=== PATIENT | female | born 1970 | race Caucasian/White ===

== ENCOUNTER 2019-10-03 22:29 | Emergency (ER) | payer OTHER ==
[~2019-10-03] VITALS: Ht 180.3 cm; Wt 147.4 kg
[2019-10-03 22:32] VITALS: BP 90/51
[2019-10-03] MEDS ORDERED: MORPHINE SULFATE 2 MG/ML SYR IVP ONE (22:55)
[2019-10-03] MEDS ORDERED: MORPHINE SULFATE 2 MG/ML SYR IM ONE (23:20)
[2019-10-04 00:12] LABS: APPEARANCE,URINE CLEAR (CLEAR); BILIRUBIN,URINE NEGATIVE (NEGATIVE); BLOOD, URINE TRACE-I (NEGATIVE); COLOR,URINE YELLOW (YELLOW); LEUKOCYTE ESTERASE ,URINE NEGATIVE (NEGATIVE); NITRITE, URINE NEGATIVE (NEGATIVE); UGLUCOSE NEGATIVE (NEGATIVE)
[2019-10-04 00:23] LABS: WBC,URINE 0-5 /HPF (0-5)
[2019-10-04 00:56] VITALS: BP 121/52
== END 2019-10-04 00:57 ==
LOC: MED 22:29
DX: R60.9 Edema, unspecified (principal); R06.02 Shortness of breath; I11.0 Hypertensive heart disease with heart failure; I50.9 Heart failure, unspecified; Z95.0 Presence of cardiac pacemaker; Z98.890 Other specified postprocedural states; Z88.0 Allergy status to penicillin
CPT/HCPCS: 36415; 71045; 81001; 83880; 93005; 96372; 99283; J2270; Q0092

== ENCOUNTER 2019-10-15 05:37 | Emergency (ER) | payer OTHER ==
[~2019-10-15] VITALS: Ht 180.3 cm; Wt 147.4 kg
[2019-10-15 05:38] VITALS: BP 125/99
--- NOTE | 2019-10-15 05:41 | NUR ---
Pt BIBA for generalized body ache x 1 week. Pt arrived to ED. Pt asked [facility] crew where her wheel chair is. [facility] crew explained they had to leave wheelchair on scene. Unable to fit wheelchair in ambulance. Pt states "take me back to get my wheelchair." [facility] crew tried to explain they are unable to take her back due to EMTALA violation. Pt starting to screaming "take me fucking back to get my fucking wheel, i need my fucking wheelchair." Pt told to stop yelling in ED and we would call [employer] to grab wheelchair. Pt states, "No, you call them now and get my fucking wheelchair." Pt continues to yell at ED staff and Paramedics. Pt refusing to leave EMS gurney until she recieves her wheelchair. Pt asked to move to hospital [facility] to be evaulated by ED doctor. Pt states "I dont want to be seen by no fucking doctor, I want my wheelchair." Pt told if she would not like to be seen by doctor then she needs to transfer into ED wheelchair to be escorted out of ED. Pt eventually states "ill move over to the bed." Pt then removed EMS gurney seatbelts and threw them off her towards medical staff. Pt continues to harass and insult medical staff. Pt told to stop and verbal assult will not be tolerated in ED. Pt then states "call the fucking shrimping boat captain and get my wheelchair." Unable to assess patients vitals or complete assessment due to paitents violent behavior. Pt appears to be stable, appears to be in no distress. ROYA jimenez calling [employer] to see if PD has pt wheelchair.
--- NOTE | 2019-10-15 05:43 | NUR ---
0530 PT BIBA BLS TO ER BED 6
--- NOTE | 2019-10-15 05:44 | NUR ---
CALL TO [facility] REGARDING PATIENT STATUS -- STAFF AT [facility] STATE THAT SHE IS NO LONGER A PATIENT AT THEIR FACILITY.
--- NOTE | 2019-10-15 05:45 | NUR ---
DR. HOUSER BEDSIDE EVALUATING PT
--- NOTE | 2019-10-15 06:03 | NUR ---
Vitals obtained from [facility] crew for triage note
--- NOTE | 2019-10-15 06:21 | NUR ---
Patient discharged with v/s stable. Written and verbal after care instructions given and explained. Patient verbalized understanding. Wheel Chair Assisted with to car. All questions addressed prior to discharge. Advised to follow up with PMD. Pt was given a voucher for a taxi ride to [email or web address] where [facility] left her wheelchair.
== END 2019-10-15 06:21 | disposition home or self-care (01) ==
LOC: MED 05:37
DX: R60.0 Localized edema (principal); M25.562 Pain in left knee; M25.532 Pain in left wrist; I11.0 Hypertensive heart disease with heart failure; I50.9 Heart failure, unspecified; Z95.0 Presence of cardiac pacemaker; Z88.0 Allergy status to penicillin
CPT/HCPCS: 99283

== ENCOUNTER 2019-11-06 23:55 | Inpatient (IN) | payer SELFPAY ==
[~2019-11-06] VITALS: Ht 170.2 cm; Wt 142.4 kg
[2019-11-07] MEDS ORDERED: NACL 0.9% 1,000 ML IV ONE (00:15)
[2019-11-07 00:20] VITALS: BP 67/17
[2019-11-07 00:55] LABS: BASOPHILS # (AUTO) 0.1 K/uL (0.00-0.22); BASOPHILS % (AUTO) 0.5 % (0.0-2.0); EOSINOPHILS % (AUTO) 0.1 % (0.0-4.0); HEMATOCRIT 42.5 % (36-48); LYMPHOCYTES # (AUTO) 1.5 K/uL (2.5-16.5); LYMPHOCYTES % (AUTO) 13.2 % (20.5-51.1); MEAN CORPUSCULAR HEMOGLOBIN 29 pg (27-31); MEAN CORPUSCULAR HGB CONC 33 g/dL (33-37); MEAN CORPUSCULAR VOLUME 87.8 fL (80-94); MONOCYTES # (AUTO) 1.1 K/uL (0.8-1.0); NEUTROPHILS # (AUTO) 8.4 K/uL (1.8-7.7); NEUTROPHILS % (AUTO) 76.2 % (42.2-75.2); PLATELET COUNT (AUTO) 448 K/uL (140-450); RED BLOOD CELL COUNT(AUTO) 4.85 MIL/uL (4.20-5.40); RED CELL DISTRIBUTION WIDTH 19.1 % (11.6-13.7)
[2019-11-07 01:13] LABS: ALBUMIN 4.3 g/dL (3.4-5.0); CARBON DIOXIDE 28.6 mmol/L (21-32); CREATININE 3.3 mg/dL (0.6-1.3); TOTAL BILIRUBIN 0.3 mg/dL (0.0-1.0)
[2019-11-07 01:21] LABS: POTASSIUM 2.6 mmol/L (3.5-5.1)
[2019-11-07] MEDS ORDERED: POTASSIUM CHLORIDE 20% 40 MEQ/15 ML UDC PO ONE (01:25)
[2019-11-07] MEDS ORDERED: POTASSIUM CHLORIDE 10 MEQ TABER PO ONE (01:45)
[2019-11-07 02:06] LABS: APPEARANCE,URINE CLEAR (CLEAR); BILIRUBIN,URINE NEGATIVE (NEGATIVE); BLOOD, URINE NEGATIVE (NEGATIVE); COLOR,URINE YELLOW (YELLOW); LEUKOCYTE ESTERASE ,URINE NEGATIVE (NEGATIVE); NITRITE, URINE NEGATIVE (NEGATIVE); UGLUCOSE NEGATIVE (NEGATIVE)
[2019-11-07] MEDS ORDERED: MORPHINE SULFATE 4 MG/ML SYR IVP ONE (05:35)
[2019-11-07] MEDS ORDERED: ALUMINUM HYD/MAG/SIMETHICONE 30 ML UDC PO ONE (05:50)
[2019-11-07] MEDS ORDERED: ONDANSETRON 4 MG/2 ML VIAL IVP ONE (06:05)
[2019-11-07] MEDS: NACL 0.9% 1,000 ML IV SCH (06:32)
[2019-11-07] MEDS ORDERED: ONDANSETRON 4 MG/2 ML VIAL IM/IVP PRN (06:35)
[2019-11-07] MEDS ORDERED: POTASSIUM CHL 10 MEQ/D5-1/2NS 1,000 ML IV ONE (06:35)
[2019-11-07 07:42] LABS: BARBITURATE, URINE NEGATIVE ng/ml (NEG <=200)
[2019-11-07 07:43] LABS: BENZODIAZEPINE, URINE POSITIVE ng/mL (NEG <=200); CANNABINOID, URINE NEGATIVE ng/mL (NEG <=50); COCAINE, URINE NEGATIVE ng/mL (NEG <=300); OPIATE, URINE POSITIVE ng/mL (NEG <=2000); PHENCYCLIDINE SCREEN,URINE NEGATIVE ng/mL (NEG <=25)
[2019-11-07 07:45] LABS: MAGNESIUM 2.2 mg/dL (1.8-2.4); PHOSPHORUS 5.6 mg/dL (2.5-4.9); THYROID STIMULATING HORMONE 3.71 uIU/mL (0.34-3.74)
[2019-11-07] MEDS ORDERED: DILT180C80 PO (08:31)
[2019-11-07] MEDS ORDERED: BENA20TA11 PO (08:31)
[2019-11-07] MEDS ORDERED: FURO-570 PO (08:31)
[2019-11-07] MEDS ORDERED: APIX5TAB PO (08:31)
[2019-11-07] MEDS ORDERED: POTA10TE30 PO (08:31)
[2019-11-07] MEDS: PANTOPRAZOLE 40 MG INJ VIAL IVP SCH (09:00)
[2019-11-07] MEDS: APIXABAN 2.5 MG TAB PO SCH ×2 (09:00→20:20)
[2019-11-07] MEDS ORDERED: BENAZEPRIL 5 MG TAB PO SCH (09:00)
[2019-11-07] MEDS ORDERED: MULTIVITAMIN-12 10 ML, THIAMINE 100 MG, FOLIC ACID 1 MG, MAGNESIUM SULFATE 50% 2,000 MG... IV SCH ×5 (09:00)
[2019-11-07] MEDS ORDERED: FUROSEMIDE 40 MG TAB PO SCH (09:00)
[2019-11-07] MEDS ORDERED: LORazepam 0.5 MG TAB PO PRN (09:05)
[2019-11-07] MEDS: MORPHINE SULFATE 2 MG/ML SYR IVP PRN ×3 (09:10→15:15)
[2019-11-07] MEDS ORDERED: ALUMINUM HYD/MAG/SIMETHICONE 30 ML UDC PO PRN (09:30)
[2019-11-07 09:54] VITALS: BP 103/51
[2019-11-07 12:00] VITALS: BP 111/54
[2019-11-07] MEDS: DILTIAZEM 60 MG TAB PO SCH ×2 (13:00→20:18)
[2019-11-07 14:11] LABS: CARBON DIOXIDE 30.7 mmol/L (21-32); CREATININE 3.2 mg/dL (0.6-1.3); POTASSIUM 3.7 mmol/L (3.5-5.1)
[2019-11-07 16:00] VITALS: BP 88/56
[2019-11-07] MEDS: LORazepam 2 MG/ML VIAL IVP PRN (17:30)
[2019-11-07 20:00] VITALS: BP 104/49
[2019-11-08] VITALS: BP 142/73
[2019-11-08] MEDS: MORPHINE SULFATE 2 MG/ML SYR IVP PRN ×2 (01:39→06:00)
[2019-11-08] MEDS: DOCUSATE SODIUM 100 MG GELCAP PO PRN ×2 (01:56→10:42)
[2019-11-08] MEDS: LORazepam 2 MG/ML VIAL IVP PRN ×2 (02:35→08:46)
[2019-11-08 04:00] VITALS: BP 112/65
[2019-11-08] MEDS: DILTIAZEM 60 MG TAB PO SCH ×2 (04:24→12:50)
[2019-11-08] MEDS: NACL 0.9% 1,000 ML IV SCH (06:32)
[2019-11-08 07:13] LABS: BASOPHILS # (AUTO) 0.1 K/uL (0.00-0.22); BASOPHILS % (AUTO) 1.7 % (0.0-2.0); EOSINOPHILS # (AUTO) 0.1 K/uL (0-0.4); EOSINOPHILS % (AUTO) 1.3 % (0.0-4.0); HEMATOCRIT 37.7 % (36-48); HEMOGLOBIN 12.3 g/dL (12.0-16.0); LYMPHOCYTES # (AUTO) 1.3 K/uL (2.5-16.5); LYMPHOCYTES % (AUTO) 16.4 % (20.5-51.1); MEAN CORPUSCULAR HEMOGLOBIN 29 pg (27-31); MEAN CORPUSCULAR HGB CONC 33 g/dL (33-37); MEAN CORPUSCULAR VOLUME 88.8 fL (80-94); MONOCYTES # (AUTO) 1.1 K/uL (0.8-1.0); MONOCYTES % (AUTO) 13.4 % (1.7-9.3); NEUTROPHILS # (AUTO) 5.4 K/uL (1.8-7.7); NEUTROPHILS % (AUTO) 67.2 % (42.2-75.2); PLATELET COUNT (AUTO) 361 K/uL (140-450); RED BLOOD CELL COUNT(AUTO) 4.24 MIL/uL (4.20-5.40); RED CELL DISTRIBUTION WIDTH 18.7 % (11.6-13.7); WHITE BLOOD COUNT (AUTO) 8.1 K/uL (4.8-10.8)
[2019-11-08 07:58] LABS: MAGNESIUM 2.6 mg/dL (1.8-2.4); PHOSPHORUS 3.5 mg/dL (2.5-4.9)
[2019-11-08 08:00] VITALS: BP 126/68
[2019-11-08 08:34] LABS: ANION GAP 11.1 (8-16); CARBON DIOXIDE 30.9 mmol/L (21-32); CREATININE 1.9 mg/dL (0.6-1.3)
[2019-11-08] MEDS: PANTOPRAZOLE 40 MG INJ VIAL IVP SCH (08:46)
[2019-11-08] MEDS: APIXABAN 2.5 MG TAB PO SCH (08:57)
[2019-11-08] MEDS ORDERED: FUROSEMIDE 40 MG/4 ML VIAL IVP SCH (09:00)
[2019-11-08] MEDS ORDERED: POTASSIUM CHLORIDE 10 MEQ TABER PO SCH (10:00)
[2019-11-08 10:01] LABS: CHOL/HDL RATIO 4.7 (1-4.5)
[2019-11-08] MEDS ORDERED: MORPHINE SULFATE 2 MG/ML SYR IVP SCH (10:30)
[2019-11-08 12:00] VITALS: BP 115/77
[2019-11-08] MEDS ORDERED: POTA10TE30 PO (13:37)
[2019-11-08] MEDS ORDERED: APIX5TAB PO ×2 (13:37→15:43)
[2019-11-08] MEDS ORDERED: DILT180C80 PO (13:37)
[2019-11-08] MEDS ORDERED: FURO-570 PO ×2 (13:37→15:48)
[2019-11-08] MEDS ORDERED: BENA20TA11 PO (13:37)
[2019-11-08 13:43] VITALS: BP 115/77
[2019-11-08] MEDS ORDERED: POTA20PA PO (15:48)
[2019-11-08] MEDS ORDERED: DILT60TA94 PO (15:48)
[2019-11-08] MEDS ORDERED: DOCU-299 PO (15:48)
== END 2019-11-08 18:00 | disposition home or self-care (01) | DRG 682 ==
LOC: MED 23:55 → MTU 11-07 06:34
PROVIDERS: ADMIT General Practice; ATTEND General Practice
DX: N17.0 Acute kidney failure with tubular necrosis (principal); I50.43 Acute on chronic combined systolic (congestive) and diastolic (congestive) heart failure; Z68.42 Body mass index [BMI] 45.0-49.9, adult; E87.6 Hypokalemia; Z88.8 Allergy status to other drugs, medicaments and biological substances; Z88.0 Allergy status to penicillin; I11.0 Hypertensive heart disease with heart failure; Z95.0 Presence of cardiac pacemaker; G89.29 Other chronic pain; Z82.49 Family history of ischemic heart disease and other diseases of the circulatory system; F10.129 Alcohol abuse with intoxication, unspecified; Y90.9 Presence of alcohol in blood, level not specified; I48.91 Unspecified atrial fibrillation; R74.0 Nonspecific elevation of levels of transaminase and lactic acid dehydrogenase [LDH]; K21.9 Gastro-esophageal reflux disease without esophagitis; E66.01 Morbid (severe) obesity due to excess calories; Z71.3 Dietary counseling and surveillance
CPT/HCPCS: 36415; 71045; 80048; 80053; 80305; 81003; 81025; 83036; 83690; 83735; 83880; 84100; 84443; 84484; 85025; 85610; 85730; 87081; 93005; 96361; 96374; 96375; 97110; 97112; 97116; 97161-GP; 97530; 99285; A9153; C9113; G0482; J1940; J2060; J2270; J2405; J3411; J3475; J3490; J7030; Q0092

== ENCOUNTER 2019-11-24 05:31 | Emergency (ER) | payer OTHER ==
[~2019-11-24] VITALS: Ht 177.8 cm; Wt 153.3 kg
[~2019-11-24 05:31] MED LIST: APIX5TAB PO; DILT60TA94 PO; DOCU-299 PO; FURO-570 PO; POTA20PA PO
--- NOTE | 2019-11-24 05:31 | NUR ---
PT BIBA BLS TO ER BED 04
[2019-11-24 05:43] VITALS: BP 158/81
[2019-11-24] MEDS ORDERED: ONDANSETRON 4 MG ODT PO ONE (05:50)
--- NOTE | 2019-11-24 05:57 | NUR ---
49 Y/O FEMALE BIBA C/O GENERALIZED ABD PAIN. RATES PAIN 10/10 AND DESCRIBES IT "HURTING." PAIN IN NONRADIAITNG. A&OX4. VSS. +NAUSEA. DENIES ANY VOMITING, DIARRHEA, SOB, OR CHEST PAIN. +DIAPHORESIS. SKIN IS WARM AND DRY TO TOUCH. HEART SOUNDS ARE REGUALARLY IRREGULAR. PT STATES SHE DRANK A PINT OF ALCOHOL YESTERDAY. DENIES ANY CHANGES OF APPETITE, DYSURIA, OR BLOOD IN THE URINE OR STOOL. ABD IS ROUND, DISTENDED, SOFT TO TOUCH, ACTIVE BS, TENDERNESS UPON PALPATION AROUND THE UMBILICAL REGION. ALLERGIES: PENCILLIN, ACETAMINIOPHEN, CEPHALEXIN PMH: A-FIB, CHF, HTN.
[2019-11-24] MEDS ORDERED: PANTOPRAZOLE 40 MG TABEC PO ONE (06:00)
[2019-11-24] MEDS ORDERED: DICYCLOMINE HCL LIQUID 10 MG/5 ML UDC PO ONE (06:10)
[2019-11-24] MEDS ORDERED: ALUMINUM HYD/MAG/SIMETHICONE 30 ML UDC PO ONE (06:10)
[2019-11-24] MEDS ORDERED: LIDOCAINE VISCOUS 2% 20 ML UDC PO ONE (06:10)
[2019-11-24 07:06] VITALS: BP 158/81
--- NOTE | 2019-11-24 07:06 | NUR ---
Patient discharged with v/s stable. Written and verbal after care instructions given and explained. Patient alert, oriented and verbalized understanding of instructions. Wheel Chair Assisted. All questions addressed prior to discharge. ID band removed. Patient advised to follow up with PMD. Rx of PROTONIX given. Patient educated on indication of medication including possible reaction and side effects. Opportunity to ask questions provided and answered.
== END 2019-11-24 07:06 | disposition home or self-care (01) ==
LOC: MED 05:31
DX: K29.70 Gastritis, unspecified, without bleeding (principal); I11.0 Hypertensive heart disease with heart failure; I50.9 Heart failure, unspecified; Z95.0 Presence of cardiac pacemaker; Z98.890 Other specified postprocedural states; Z79.899 Other long term (current) drug therapy; Z88.0 Allergy status to penicillin; Z88.1 Allergy status to other antibiotic agents; Z88.6 Allergy status to analgesic agent
CPT/HCPCS: 99284; Q0162